=== PATIENT | female | born 2000 | race Caucasian/White ===

== ENCOUNTER → 2020-07-26 12:42 | Outpatient (BNVA) | payer MEDICAID, SELFPAY | PROVIDERS: Visit Provider Advanced Practice Midwife ==

== ENCOUNTER 2021-02-06 16:01 | Emergency (ER) | payer MEDICAID, SELFPAY | END 2021-02-06 18:28 | disposition left against medical advice (07) | PROVIDERS: Emergency Provider Emergency Medicine | DX: N93.9 Abnormal uterine and vaginal bleeding, unspecified (principal) ==

== ENCOUNTER 2021-02-16 08:02 | Emergency (ER) | payer OTHER, MEDICAID, SELFPAY ==
--- NOTE | ~2021-02-16 | US_ITS ---
EXAMINATION: US ABDOMEN LIMITED CLINICAL INFORMATION: Right upper quadrant pain. COMPARISON: None TECHNIQUE: Real-time imaging of the right upper quadrant abdominal viscera. FINDINGS: PANCREAS: Predominantly obscured by overlying bowel gas. LIVER: Normal. The liver is normal in size. The liver contour is normal. Parenchymal echogenicity is normal. No focal hepatic lesion. There is no intrahepatic biliary duct dilatation seen. GALLBLADDER: Normal. The gallbladder is physiologically distended without evidence of stones, sludge, polyps, wall thickening or pericholecystic fluid. COMMON BILE DUCT: Normal in caliber measuring 0.3 cm in diameter. RIGHT KIDNEY: Normal. No hydronephrosis. No renal calculi or focal parenchymal lesions. The kidney measures 11.4 cm in maximum dimension. FREE FLUID: None. US/US abdomen limited IMPRESSION: No stones or obstructive uropathy.
[2021-02-16 08:31] VITALS: BP 126/64; PULSE 85; RESP 18; TEMP 36.7; O2SAT 97; BMI 30.1
[2021-02-16 09:09] LABS: MANUAL DIFF FLAG NO
[2021-02-16 09:11] LABS: Basophils Absolute Auto 0.1 X10*3/uL (0.0-0.2); Basophils Percent Auto 0.7 % (0-2); Eosinophils Absolute Auto 0.3 X10*3/uL (0.0-0.4); Eosinophils Percent Auto 4.6 % (0-4); Hematocrit 37.6 % (37-47); Hemoglobin 12.5 g/dl (12.0-16.0); Imm Gran Abs Auto 0.02 X10*3/uL (0.00-0.03); Imm Gran Pct Auto 0.3 % (0.0-0.4); Mean Corpuscular HGB Conc 33.2 g/dl (31.0-35.0); Mean Corpuscular Hemoglobin 27.6 pg (27.0-33.0); Mean Platelet Volume 9.6 fL (9.4-12.3); Monocytes Absolute Auto 0.5 X10*3/uL (0.1-1.2); Monocytes Percent Auto 7.8 % (2-11); Neutrophils Absolute Auto 3.9 X10*3/uL (2.0-8.3); Neutrophils Percent Auto 57.6 % (45-73); Platelet Count 322 X10*3/uL (160-400); Red Blood Count 4.53 X10*6/uL (4.20-5.50); Red Cell Distribution Width 12.4 % (11.0-16.0); White Blood Count 6.8 X10*3/uL (4.8-10.8)
[2021-02-16 09:12] LABS: Glucose Urine UA NEG (NEG); Leukocyte Esterase Urine TRACE (NEG); Nitrite Urine NEG (NEG); Specific Gravity - Urine >= 1.030 (1.005-1.025); UACC Culture Trigger YES; Urine Blood NEG (NEG); Urine Ketones NEG (NEG); Urine Protein TRACE MG/DL (NEG-TRACE)
--- NOTE | 2021-02-16 09:12 | ED.ABDPAIN ---
HPI - Abdominal Pain General Chief Complaint: Abdominal Pain Stated Complaint: abd pain Time Seen by Provider: 02/16/21 08:44 Source: patient Limitations: no limitations History of Present Illness HPI narrative: Patient presents with right-sided upper abdominal pain for the past 3 days. Patient states the pain started at rest. Patient was just lying there. Patient denies nausea vomiting diarrhea at this time. Pain is aching in nature. No similar symptoms in the past. Patient has not been vaccinated for COVID-19 and has no history of COVID-19. Symptoms mild to moderate pain is 6/10. Pain increases with palpation and movement. Patient has a history of asthma in the past which she takes an inhaler for. Patient denies any other medical history does take control. Patient denies any dysuria or vaginal discharge or urinary symptoms. No other complaints at this time. Related Data Previous Rx's Medication Instructions Recorded norelgestromin 150 mcg-e.estradiol 1 patch TRANSDERMAL Q7D PRN 21 07/26/20 35 mcg/24 hr weekly transderm Days #3 ea patch (Xulane) doxycycline hyclate 100 mg capsule 100 mg PO BID #14 cap 02/16/21 Allergies Allergy/AdvReac Type Severity Reaction Status Date / Time banana [BANANA] Allergy Intermediate RASH Unverified 03/03/20 18:56 HAIR DYE Allergy Unknown UNKNOWN Uncoded 03/03/20 18:56 [facility] Allergy Unknown RASH Uncoded 03/03/20 18:56 VO5 Allergy Unknown RASH Uncoded 03/03/20 18:56 Review of Systems Review of Systems Constitutional : No Weight loss, No Fever, No Chills, No Night Sweats, No Fatigue, No Malaise ENT/Mouth : No Hearing loss, No Ear Pain, No Nasal Congestion, No Sinus Pain, No Hoarseness, No sore throat, No Rhinorrhea, No Swallowing Difficulty Eyes: No Eye Pain, No Swelling, No Redness, No Foreign Body, No Discharge, No Vision Changes Cardiovascular : No Chest Pain, No SOB, No Dyspnea on Exertion, No Orthopnea, No Edema, No Palpitations Respiratory : No Cough, No Sputum, No Wheezing, No Smoke Exposure, No Dyspnea Gastrointestinal : Right upper abdominal pain no nausea vomiting or diarrhea. Genitourinary : no irregular bleeding, No Dysuria, No Urinary Frequency, No Hematuria, No Urinary Incontinence, No Urgency, No Flank Pain, No Urinary Flow Changes, No Hesitancy Musculoskeletal : No joint pain, No Myalgias, No Joint SwellingSkin : No Skin Lesions, No rash Neuro : No Weakness, No Numbness, No Paresthesias, No Loss of Consciousness, No Dizziness, No Headache Psych : No Anxiety/Panic, No Depression, No SI/HI/AH/VH, No Social Issues, Heme/Lymph: No Bruising, No Bleeding,No Lymphadenopathy Endocrine : No Polyuria, No Polydipsia, No Temperature Intolerance Physical Exam Vital Signs: Vital Signs: Last Vital Signs Temp 98.1 F 02/16/21 08:31 Pulse 89 02/16/21 12:15 Resp 17 02/16/21 12:15 BP 104/63 02/16/21 12:15 Pulse Ox 98 02/16/21 12:15 Body Mass Index 30.1 vital signs have been reviewed as normal and appeared to be correct. Blood pressure normal. Heart rate normal. Respiration rate normal. Temperature normal. Oxygen saturation normal. Appearance: Alert. Oriented X3. No acute distress. Head: Normal external exam. Normocephalic. Atraumatic. Eyes: PERRLA. EOMI. Conjunctiva and sclera normal. Eyelids normal. ENT: Pharynx normal. Uvula midline. Moist mucous membranes. No trismus noted. No drooling noted. No muffled voice noted. Neck: Soft full range of motion, no JVD CVS: Heart regular rate and rhythm no murmurs and rubs Respiratory: Breath sounds are clear to auscultation bilaterally. No accessory muscle use noted. Abdomen: Right upper quadrant tenderness no rebound or guarding Back: Slight right-sided CVA tenderness. Full range of motion noted. Skin: Skin warm and dry. Normal skin color. Normal skin turgor. No rashes/lesions/lacerations noted. Extremities: No lower extremity edema. Extremities exhibit normal range of motion. Extremities nontender. Neuro: Oriented X 3. No motor deficit. No sensory deficit. Reflexes normal. Course Course Course Narrative: Cholecystitis Cholelithiasis Biliary colic Renal calculi Renal colic Abdominal pain Peptic ulcer disease 1000 mL normal saline IV CBC complete metabolic panel UA is pending. Case discussed with Dr. Nunez will give patient 30 of Maalox p.o. 15 mL of viscous lidocaine p.o. see if symptoms improve CBC CMP unremarkable if patient continues with right upper quadrant pain after GI cocktail will get ultrasound of the right upper quadrant. 10:44 a.m. No relief with GI cocktail will get a right upper quadrant ultrasound rule out cholecystitis at this time versus cholelithiasis 11:04 a.m. Patient states she would like to be tested for chlamydia and also since her has tested positive. Will send dirty urine at this time and empirically treated with 1 g Zithromax p.o. 12:07 p.m. RN notified patient having some increased discomfort will give 2 mg morphine IV ultrasound still pending Ultrasound showed no signs of cholecystitis plan to discharge home at this time MDM - Abdominal Pain Lab Data Result diagrams: 02/16/21 09:03 02/16/21 09:02 Labs: Lab Results 02/16/21 02/16/21 02/16/21 Range/Units 08:55 09:02 09:02 WBC (4.8-10.8) X10*3/uL RBC (4.20-5.50) X10*6/uL Hgb (12.0-16.0) g/dl Hct (37-47) % MCV (80-98) fL MCH (27.0-33.0) pg MCHC (31.0-35.0) g/dl RDW (11.0-16.0) % Plt Count (160-400) X10*3/uL MPV (9.4-12.3) fL Immature Gran % (Auto) (0.0-0.4) % Neut % (Auto) (45-73) % Lymph % (Auto) (20-40) % Smith % (Auto) (2-11) % Eos % (Auto) (0-4) % Baso % (Auto) (0-2) % Lymph # (Auto) (1.2-4.9) X10*3/uL Smith # (Auto) (0.1-1.2) X10*3/uL Eos # (Auto) (0.0-0.4) X10*3/uL Baso # (Auto) (0.0-0.2) X10*3/uL Abs Immat Gran (auto) (0.00-0.03) X10*3/uL Absolute Neuts (auto) (2.0-8.3) X10*3/uL Absolute Nucleated RBC (0.0-0.012) X10*3/uL Nucleated RBC % (auto) (0.0-0.2) /100WBC Sodium 138 (135-145) mmol/L Potassium 4.0 (3.3-5.1) mmol/L Chloride 106 (96-108) mmol/L Carbon Dioxide 25 (22-29) mmol/L Anion Gap 11 L (12-20) BUN 14 (9-16) mg/dL Creatinine 0.70 (0.5-1.4) mg/dL Estim Creat Clear Calc 125.0 Estimated GFR > 60 Random Glucose 87 (60-115) mg/dL Calcium 9.4 (8.4-10.2) mg/dL Total Bilirubin 0.5 (0.0-1.0) mg/dL Direct Bilirubin 0.2 (0.0-0.5) mg/dL AST 15 (5-31) U/L ALT 12 (0-31) U/L Alkaline Phosphatase 73 (39-117) U/L Total Protein 7.2 (6.5-8.0) g/dL Albumin 4.2 (3.5-5.0) g/dL Urine Color YELLOW Urine Appearance CLEAR Urine pH 6.0 (5.0-8.0) Ur Specific [place] >= 1.030 H (1.005-1.025) Urine Protein TRACE (NEG-TRACE) MG/DL Urine Glucose (UA) NEG (NEG) MG/DL Urine Ketones NEG (NEG) MG/DL Urine Blood NEG (NEG) Urine Nitrite NEG (NEG) Ur Leukocyte Esterase TRACE H (NEG) Urine RBC 0-2 (0) /HPF Urine WBC 5-9 H (0-4) /HPF Ur Squamous Epith Cells 2+ /LPF Urine Bacteria 1+ /LPF Urine Mucus 2+ /LPF Urine Test NEGATIVE (NEGATIVE) Chlam trachomat DNA PCR (Not Detect.) N.gonorrhoeae DNA (PCR) (Not Detect.) 02/16/21 02/16/21 Range/Units 09:03 11:34 WBC 6.8 (4.8-10.8) X10*3/uL RBC 4.53 (4.20-5.50) X10*6/uL Hgb 12.5 (12.0-16.0) g/dl Hct 37.6 (37-47) % MCV 83.0 (80-98) fL MCH 27.6 (27.0-33.0) pg MCHC 33.2 (31.0-35.0) g/dl RDW 12.4 (11.0-16.0) % Plt Count 322 (160-400) X10*3/uL MPV 9.6 (9.4-12.3) fL Immature Gran % (Auto) 0.3 (0.0-0.4) % Neut % (Auto) 57.6 (45-73) % Lymph % (Auto) 29.0 (20-40) % Smith % (Auto) 7.8 (2-11) % Eos % (Auto) 4.6 H (0-4) % Baso % (Auto) 0.7 (0-2) % Lymph # (Auto) 2.0 (1.2-4.9) X10*3/uL Smith # (Auto) 0.5 (0.1-1.2) X10*3/uL Eos # (Auto) 0.3 (0.0-0.4) X10*3/uL Baso # (Auto) 0.1 (0.0-0.2) X10*3/uL Abs Immat Gran (auto) 0.02 (0.00-0.03) X10*3/uL Absolute Neuts (auto) 3.9 (2.0-8.3) X10*3/uL Absolute Nucleated RBC 0.000 (0.0-0.012) X10*3/uL Nucleated RBC % (auto) 0.0 (0.0-0.2) /100WBC Sodium (135-145) mmol/L Potassium (3.3-5.1) mmol/L Chloride (96-108) mmol/L Carbon Dioxide (22-29) mmol/L Anion Gap (12-20) BUN (9-16) mg/dL Creatinine (0.5-1.4) mg/dL Estim Creat Clear Calc Estimated GFR Random Glucose (60-115) mg/dL Calcium (8.4-10.2) mg/dL Total Bilirubin (0.0-1.0) mg/dL Direct Bilirubin (0.0-0.5) mg/dL AST (5-31) U/L ALT (0-31) U/L Alkaline Phosphatase (39-117) U/L Total Protein (6.5-8.0) g/dL Albumin (3.5-5.0) g/dL Urine Color Urine Appearance Urine pH (5.0-8.0) Ur Specific [place] (1.005-1.025) Urine Protein (NEG-TRACE) MG/DL Urine Glucose (UA) (NEG) MG/DL Urine Ketones (NEG) MG/DL Urine Blood (NEG) Urine Nitrite (NEG) Ur Leukocyte Esterase (NEG) Urine RBC (0) /HPF Urine WBC (0-4) /HPF Ur Squamous Epith Cells /LPF Urine Bacteria /LPF Urine Mucus /LPF Urine Test (NEGATIVE) Chlam trachomat DNA PCR DETECTED A (Not Detect.) N.gonorrhoeae DNA (PCR) NOT DETECTED (Not Detect.) Discharge Plan Discharge Clinical Impression: Chlamydia infection, Abdominal pain in female Patient Disposition: Home, Self-Care Instructions: Chlamydia (ED), Abdominal Pain (ED) Additional Instructions: Increase fluids rest bland diet Follow-up with PCP is recommended Antibiotics as directed Prescriptions: New doxycycline hyclate 100 mg capsule 100 mg PO BID Qty: 14 RF: 0 No Action Xulane 150-35 mcg/24 hr patch weekly 1 patch transdermal Q7D PRN (Reason: cycle control) 21 Days Qty: 3 RF: 5 Referrals: Ambrocio Wolf [Emergency Nurse] - 2 days [facility] Past Medical History Attestation statement: The following information was validated with the patient. Medical History Asthma Social History Social History Alcohol intake: never Sexual orientation: Straight/Heterosexual
[2021-02-16 09:13] LABS: Appearance Urine CLEAR; Color Urine YELLOW
[2021-02-16 09:15] LABS: UPreg QC Valid YES; Urine Pregnancy NEGATIVE (NEGATIVE)
[2021-02-16] MEDS: 0.9 % Sodium Chloride 1,000 ML 999 ML IV (09:16)
[2021-02-16 09:25] LABS: Alanine Aminotransferase 12 U/L (0-31); Albumin Level 4.2 g/dL (3.5-5.0); Alkaline Phosphatase 73 U/L (39-117); Anion Gap 11 (12-20); Aspartate Amino Transferase 15 U/L (5-31); Bilirubin Direct 0.2 mg/dL (0.0-0.5); Bilirubin Total 0.5 mg/dL (0.0-1.0); Blood Urea Nitrogen 14 mg/dL (9-16); Calcium 9.4 mg/dL (8.4-10.2); Carbon Dioxide 25 mmol/L (22-29); Chloride 106 mmol/L (96-108); Estimated Glomerular Filt Rate > 60; Glucose Random 87 mg/dL (60-115); Sodium 138 mmol/L (135-145); Total Protein 7.2 g/dL (6.5-8.0)
[2021-02-16 09:27] LABS: Bacteria Urine 1+ /LPF; RBC Urine 0-2 /HPF (0); Squamous Epithelial Cell Urine 2+ /LPF
[2021-02-16 09:28] LABS: Mucus Urine 2+ /LPF
[2021-02-16] MEDS: Magnesium Hydrox/Alum Hydrox 30 ML ORAL.SUSP PO (09:59)
[2021-02-16] MEDS: Lidocaine HCl Viscous 2 % 15 ML SOLUTION MUCOUS MEM (09:59)
[2021-02-16] MEDS: Azithromycin 500 MG TABLET 1000 MG PO (11:14)
[2021-02-16 12:15] VITALS: BP 104/63; PULSE 89; RESP 17; O2SAT 98
[2021-02-16] MEDS: Morphine Sulfate 2 MG/ML CARTRIDGE IVPUSH (12:15)
[2021-02-16 13:28] LABS: CT PCR DETECTED (Not Detect.); NG PCR NOT DETECTED (Not Detect.)
== END 2021-02-16 14:54 | disposition home or self-care (01) ==
PROVIDERS: Physician Assistant; Emergency Provider Emergency Medicine
DX: A74.9 Chlamydial infection, unspecified (principal); R10.11 Right upper quadrant pain; Z79.899 Other long term (current) drug therapy
CPT/HCPCS: 36415; 76705; 80048; 80076; 81001; 81025; 85025; 87086; 87491; 87591; 96361; 96374; 99283; 99284; J2270

== ENCOUNTER 2021-06-14 07:50 | Emergency (ER) | payer OTHER, MEDICAID, SELFPAY ==
[2021-06-14 08:20] VITALS: BP 109/62; PULSE 106; RESP 19; TEMP 36.1; O2SAT 97; BMI 29.2
[2021-06-14 08:41] LABS: COVID-19 Test Positive (Negative)
--- NOTE | 2021-06-14 08:48 | ED_ITS ---
HPI - URI/Sore Throat General Chief Complaint: Upper Respiratory Symptoms Stated Complaint: COVID exposure vomiting headache Time Seen by Provider: 06/14/21 08:47 Source: patient Mode of arrival: ambulatory Limitations: no limitations History of Present Illness HPI Narrative: 20-year-old healthy female presents to the ER with body aches, headache, dry cough, low-grade fevers at home along with nausea and vomiting that started yesterday. She was around her [id number] on [place] who was found to be COVID positive. She has no shortness of breath or chest pain. She feels drained has diffuse muscle aches. MD elicited complaint: cough and other (Body aches and headaches) Onset (ago): day(s) (1) Consistency: constant Severity: moderate Able to tolerate fluids by mouth: Yes Exacerbating factors: exertion Relieving factors: nothing Context: sick contacts Associated symptoms: fever, chills, headache, cough, nausea and vomiting Treatments prior to arrival: none Related Data Previous Rx's Medication Instructions Recorded norelgestromin 150 mcg-e.estradiol 1 patch TRANSDERMAL Q7D PRN 21 07/26/20 35 mcg/24 hr weekly transderm Days #3 ea patch (Xulane) doxycycline hyclate 100 mg capsule 100 mg PO BID #14 cap 02/16/21 ondansetron 4 mg disintegrating 4 mg PO Q8H PRN #7 tab 06/14/21 tablet Allergies Allergy/AdvReac Type Severity Reaction Status Date / Time banana [BANANA] Allergy Intermediate RASH Unverified 03/03/20 18:56 HAIR DYE Allergy Unknown UNKNOWN Uncoded 03/03/20 18:56 [facility] Allergy Unknown RASH Uncoded 03/03/20 18:56 VO5 Allergy Unknown RASH Uncoded 03/03/20 18:56 Review of Systems Review of Systems: Constitutional: + Fever, + Chills ENT/Mouth: No sore throat, No Rhinorrhea, No Swallowing Difficulty Cardiovascular: No Chest Pain, No SOB Respiratory: + Cough, No Sputum, No Wheezing, No dyspnea Gastrointestinal: No Nausea, No Vomiting, No Diarrhea, No abdominal Pain Musculoskeletal: No joint pain, No Myalgias Skin: No Skin Lesions, No rash Neuro: + Weakness, No Numbness, No Dizziness, + Headache Heme/Lymph: No Lymphadenopathy PMFSH Past Medical History Medical History Asthma Social History Social History Alcohol intake: never Advance Directives: No Advance Directives Information Provided: No Patient : No Sexual orientation: Straight/Heterosexual Physical Exam Vital Signs: Vital Signs: Last Vital Signs Temp 97 F 06/14/21 08:20 Pulse 106 H 06/14/21 08:20 Resp 19 06/14/21 08:20 BP 109/62 06/14/21 08:20 Pulse Ox 97 06/14/21 08:20 BMI result Body Mass Index 29.2 Appearance: Alert. Oriented X3. No acute distress. Eyes: Pupils equal, round and reactive to light. ENT: Pharynx normal. Neck: Normal inspection. Neck supple. CVS: Normal heart rate and rhythm. Pulses normal. Respiratory: No respiratory distress. Breath sounds normal. Abdomen: Soft and nontender. +BS x4 Skin: Skin warm and dry. Normal skin color. Normal skin turgor. No rashes. Extremities: No lower extremity edema. No calf tenderness Neuro: Oriented X 3. Grossly normal, nonfocal Course Course Course Narrative: 20-year-old female presents with COVID symptoms after exposure on [place]. She is nontoxic appearing. HR 106 on arrival. Likely due to vomiting. SpO2 97%. COVID test is positive. She is stable for d/c home with Zofran and supportive care. MDM - URI/Sore Throat Lab Data Labs: Lab Results 06/14/21 Range/Units 08:28 COVID-19 ([facility]) Positive A (Negative) COVID-19 Clin Com See Note Discharge Plan Discharge Clinical Impression: COVID-19 Patient Disposition: Home, Self-Care Instructions: Covid-19 Viral Syndrome and Novel Coronavirus (ED) Hey/Ath Additional Instructions: You were found to be COVID-19 POSITIVE today. Your exam and oxygen levels were normal. Rest. Drink plenty of fluids. Do not go out in public for the next 10 days. Take the prescribed nausea medication as needed. Take over the counter cold/flu medications as needed for your symptoms. Take Tylenol and/or Motrin as needed for fevers and body aches. Follow up with your doctor this week. If your symptoms worsen, if you develop difficulty breathing or any other concerning symptom come back to the ER for further evaluation. Prescriptions: New ondansetron 4 mg tablet,disintegrating 4 mg PO Q8H PRN (Reason: nausea and vomiting) Qty: 7 RF: 0 No Action doxycycline hyclate 100 mg capsule 100 mg PO BID Qty: 14 RF: 0 Xulane 150-35 mcg/24 hr patch weekly 1 patch transdermal Q7D PRN (Reason: cycle control) 21 Days Qty: 3 RF: 5 Stand Alone Forms: Work/School Release Interventions: ED Discharge Assessment Last Done: 06/14/21 09:11 Discharge Date/Time: 06/14/21 09:11
== END 2021-06-14 09:11 | disposition home or self-care (01) ==
PROVIDERS: Emergency Provider Emergency Medicine
DX: U07.1 COVID-19 (principal); R11.2 Nausea with vomiting, unspecified
CPT/HCPCS: 36415; 87635; 99283